=== PATIENT | female | born 1940 | race Two or more races ===

== ENCOUNTER 2021-09-17 11:06 | Outpatient (REF) | payer MEDICARE, SELFPAY ==
--- NOTE | ~2021-09-17 | MR_ITS ---
EXAMINATION: MRI BRAIN WITHOUT CONTRAST CLINICAL INFORMATION: 80-year-old with diminished vision. History of Alzheimer's. COMPARISON: None TECHNIQUE: Multiplanar multisequence MR imaging of the brain was done without contrast. Technical Note: Study was limited due to excessive gross patient motion artifact. FINDINGS: BRAIN VOLUME: Moderate diffuse generalized brain parenchymal volume loss is noted supratentorially. STRUCTURAL: No malformations. BRAIN AND MENINGES: DWI sequence demonstrates no restricted diffusion to suggest acute or subacute cerebral ischemia. Scattered patchy zones of FLAIR/T2 signal hyperintensity are seen within the subcortical and deeper periventricular white matter of both cerebral hemispheres with small patchy zones of T2 hyperintensity extending into the left internal capsule and putamen, likely reflecting chronic ischemic microangiopathy. Bilateral periventricular leukoaraiosis is also noted associated with this. Some patchy T2 hyperintensity is seen in the camryn, right more than left, likely reflecting chronic ischemic microangiopathy. Gradient refocused imaging demonstrates no evidence for hemorrhage, hemosiderin staining or abnormal mineral deposition. No extra-axial fluid collections, significant space-occupying process or mass effect is identified. VENTRICLES AND SUBARACHNOID SPACES: There is third and lateral ventriculomegaly, likely reflecting volume loss. No definite hydrocephalus. ORBITAL STRUCTURES: Limited assessment. Bilateral lens extractions noted. Partially empty sella noted. VASCULAR: Signal voids are noted in the visualized major intracranial vessels. OSSEOUS STRUCTURES, SINUSES/MASTOIDS, EXTRACRANIAL SOFT TISSUES: Bony structures appear grossly unremarkable within the limitations of the exam. The visualized extracranial soft tissue structures are unremarkable. There is some mucosal thickening in the ethmoid complex. MR/MR head/brain wo con IMPRESSION: 1. Findings consistent with chronic ischemic microangiopathy in the white matter of both cerebral hemispheres and within the camryn with no evidence for acute or subacute cerebral ischemia. 2. No acute intracranial process. 3. Diffuse generalized brain parenchymal volume loss primarily supratentorially with third and lateral ventriculomegaly likely reflecting volume loss, most prominent at the perisylvian regions and biparietal lobes. 4. Ethmoid sinus mucosal inflammatory changes. 5. Limited study due to motion artifact.
== END 2021-09-17 11:07 | disposition home or self-care (01) ==
LOC: HO.MRI 11:06
PROVIDERS: Visit Provider Psychiatry & Neurology Neurology
DX: H54.10 Blindness, one eye, low vision other eye, unspecified eyes (principal)
CPT/HCPCS: 70551

== ENCOUNTER → 2025-04-10 13:50 | Outpatient (AMB) | payer MEDICARE, SELFPAY ==
--- NOTE | 2025-04-10 13:52 | A.OFFVIS_ITS ---
Intake Visit Reasons: 6m follow up PD HPI Comments Details: 84 years old woman with Lewy body dementia. This consultation happened over video phone. She was significantly disabled and was not able to come out of home. Her daughter stated that she was mostly sleepy and rigid especially her right side. Sometime she was angry and agitated. No seizure-like episodes. Review of Systems Const Reports as per HPI Physical Exam Neuro Other: Mental Status: She was drowsy and not responsive to communication. Cranial Nerves: Unable to properly check cranial nerves. She was sitting in a wheelchair. Extrapyramidal: Decreased facial expression blinking. Generalized bradykinesia. Speech: Did not speak. Assessment & Plan Assessment & Plan (1) Dementia with Lewy bodies: Comment: CAT scan of brain and MRI of brain in 2012 at ; Mild bilateral medial temporal and parietal lobe atrophy and minimal chronic microvascular ischemic changes. MRI brain WO at [facility] in August 2021: mod to severe atrophy, especially of entorhinal cortex Code(s): G31.83 - Neurocognitive disorder with Lewy bodies; F02.80 - Dementia in other diseases classified elsewhere, unspecified severity, without behavioral disturbance, psychotic disturbance, mood disturbance, and anxiety Category: Medical Qualifiers: Dementia severity: severe Dementia behavioral or psychological symptom: without behavioral, psychotic, or mood disturbance or anxiety Qualified Code(s): G31.83 - Neurocognitive disorder with Lewy bodies; F02.C0 - Dementia in other diseases classified elsewhere, severe, without behavioral disturbance, psychotic disturbance, mood disturbance, and anxiety (2) Parkinsonism: Code(s): G20.C - Parkinsonism, unspecified Category: Medical Qualifiers: 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
--- OUTSIDE RECORDS SUMMARY | 2025-04-10 18:24 | XMS_ITS ---
Author Name [facility] Organization Unknown Care Team Organization Name Specialty Phone Email Start Date End Da te [facility] 12/12/2024 [facility] Alisson Rivas Primary Care 03/02/2022 4
--- OUTSIDE RECORDS SUMMARY | 2025-04-10 18:24 | XMS_ITS | Clinical Summary ---
Author Organization [facility] [address] [facility] Address [address] [place] [address] Phone Care Team Providers Care Warehouse Attendant Name Role Phone Alisson Rivas MD Primary Care Provider [phone] Allergies No known active allergies Medications GARLIC ORAL Take 1 each by mouth 1 (one) time each day. Active CHOLECALCIFEROL, VITAMIN D3, ORAL Take 1 each by mouth 1 (one) time each day. Active ferrous sulfate 324 mg (65 mg elemental iron) EC tablet Take 1 tablet (324 mg total) by mouth 1 (one) time each day. Active ACETYLCARNITINE HCL ORAL Take 400 mg by mouth 1 (one) time each day. Active hydroCHLOROthiazide (HYDRODIURIL) 25 mg tablet TAKE 1 TABLET BY MOUTH 1 TIME EACH DAY. 30 tablet 5 5 Active carbidopa-levodopa (PARCOPA) 25-100 mg per disintegrating tablet Dissolve 1 tablet on top of the tongue 2 (two) times a day. Active warfarin (COUMADIN) 5 mg tablet Take 1 tablet (5 mg total) by mouth 1 (one) time each day. 30 tablet 5 5 Active sertraline (ZOLOFT) 25 mg tablet Take 1 tablet (25 mg total) by mouth 1 (one) time each day. 30 tablet 5 5 Active losartan (COZAAR) 50 mg tablet Take 1 tablet (50 mg total) by mouth 1 (one) time each day. 30 tablet 5 5 Active propranoloL (INDERAL) 60 mg tablet Take 1 tablet (60 mg total) by mouth 2 (two) times a day. 60 tablet 5 Active Active Problems Problem Noted Date Diagnosed Date Parkinson disease 12/19/2024 Atrial fibrillation 04/02/2015 Overview (05/16/2024): Vitamin D deficiency 08/15/2013 Lewy body dementia 05/09/2013 Hypertension 06/22/2006 Overview (05/16/2024): Hyperlipidemia 06/22/2006 Overview (05/16/2024): Resolved Problems Problem Noted Date Diagnosed Date Resolved Date Atrial fibrillation 03/07/2024 03/21/20 24 Encounters Date Type Department Care Team Description 04/01/2025 Telephone Coumadin [address] [phone] Alisson Rivas MD 03/18/2025 Telephone Coumadin [address] [phone] Alisson Rivas MD 03/04/2025 Anticoagulation - Warfarin Visit Coumadin [address] [phone] Alisson Rivas MD Longstanding persistent atrial fibrillation ([facility]/HCC V24, CMS/HCC V28) (Primary Dx) 02/25/2025 Anticoagulation - Warfarin Visit Coumadin [address] [phone] Alisson Rivas MD Longstanding persistent atrial fibrillation (CMS/HCC V24, CMS/HCC V28) (Primary Dx) 02/25/2025 Telephone Adult Medicine [address] [phone] Alisson Rivas MD 02/18/2025 Anticoagulation - Warfarin Visit Coumadin [address] [phone] Alisson Rivas MD Longstanding persistent atrial fibrillation (CMS/HCC V24, [facility] V28) (Primary Dx) 02/18/2025 Telephone Adult Medicine [address] [phone] Alisson Rivas MD 02/11/2025 Anticoagulation - Warfarin Visit Coumadin [address] [phone] Alisson Rivas MD Longstanding persistent atrial fibrillation ([facility] [place]24, [facility] V28) (Primary Dx) 01/28/2025 Anticoagulation - Warfarin Visit Coumadin [address] [phone] Alisson Rivas MD Longstanding persistent atrial fibrillation ([facility] [place]24, [facility] V28) (Primary Dx) 01/14/2025 Anticoagulation - Warfarin Visit Coumadin [address] [phone] Gabbie Castano LPN from Last 3 Months Immunizations Immunization Administration Dates Next Due Pfizer SARS-CoV-2 COVID-19, mRNA, LNP-S, preservative free 05/29/2021 Surgical History Surgery Date Site/Laterality Comments CATARACT EXTRACTION 2013 TONSILLECTOMY Medical History Medical History Date Comments Essential hypertension, benign 06/22/2006 Pure hypercholesterolemia 06/22/2006 Lewy body dementia ([facility] [place]24, [facility] V28) Parkinson disease ([facility] V24, [facility] V28) Family History Medical History Relation Name Comments ALS Brother Other: Other Father age 55 Other: Other Mother age 89 Alzheimer's disease Sister Breast cancer Neg Hx Relation Name Status Comments Brother Father Mother Sister Social History Tobacco Use Types Packs/Day Years Used Date Smoking Tobacco: Never Smokeless Tobacco: Never Tobacco Cessation:Counseling Given: Not Answered Alcohol Use Standard Drinks/Week Comments Not Currently 0 (1 standard drink = 0.6 oz pur e alcohol) Comments Unknown Sex and Gender Information Value Date Recorded Sex Assigned at Not on file Legal Sex Female 7:22 AM EST Gender Identity Not on file Sexual Orientation Not on file Last Filed Vital Signs Vital Sign Reading Time Taken Comments Blood Pressure 125/63 12/19/2024 2:09 PM EDT Pulse 59 12/19/2024 2:09 PM EDT Temperature 35.7 C (96.3 F) 12/19/2024 2:09 PM EDT Respiratory Rate 14 12/19/2024 2:09 PM EDT Oxygen Saturation 97% 12/19/2024 2:09 PM EDT Inhaled Oxygen Concentration - - Weight 63.5 kg (140 lb) 12/19/2024 2:09 PM EDT Height 157.5 cm (5' 2 ) 12/19/2024 2:09 PM EDT Body Mass Index 25.61 12/19/2024 2:09 PM EDT Plan of Treatment Upcoming Encounters Date Type Department Care Team (Late st Contact Info) Description 06/24/2025 2:15 PM EST Office Visit Adult Medicine [facility] [address], [place] [phone] Alisson Rivas MD [address], [place] Health Maintenance Due Date Last Done Comments DTaP,Tdap,and Td Vaccines (1 - Tdap) 1961 Pneumococcal Vaccine: 50+ Years (1 of 1 - PCV) 1992 Zoster Vaccines (1 of 2) 1992 RSV Immunization Adult Patients (1 - 1-dose 75+ series) 2017 Social Influencers of Health Screening 04/03/2022 Osteoporosis Screening (Bone Density Screening) 01/31/2024 01/30/2014 Depression Screening 04/25/2024 09/02/2023 Falls Risk Assessment 09/01/2024 09/02/2023 , 09/02/2023 Medicare Annual Wellness Visit 09/01/2024 09/02/2023 COVID-19 Vaccine (3 - 2024-2 6 season) 2024 05/29/2021, 08/01/2020 Influenza Vaccine (#1) 2024 Hypertension/CHF/CAD Annual BMP Blood Test 09/11/2025 09/11/2024, 09/14/2023, 09/14/2023 Cholesterol Screening (Lipid Panel) 09/13/2028 09/14/2023, 09/14/2023 HIB Vaccines Aged Out No longer eligi ble based on patient's age to complete this topic HPV Vaccines Aged Out No longer eligi ble based on patient's age to complete this topic Hepatitis A Vaccines Aged Out No long er eligible based on patient's age to complete this topic Hepatitis B Vaccines Aged Out No long er eligible based on patient's age to complete this topic IPV Vaccines Aged Out No longer eligi ble based on patient's age to complete this topic MMR Vaccines Aged Out No longer eligi ble based on patient's age to complete this topic Meningococcal ACWY Vaccine Aged Out N o longer eligible based on patient's age to complete this topic Meningococcal B Vaccine Aged Out No l onger eligible based on patient's age to complete this topic RSV Immunization Patients Under 20 months Aged Out No longer eligible b ased on patient's age to complete this topic Varicella Vaccines Aged Out No longer eligible based on patient's age to complete this topic Procedures Procedure Name Priority Date/Time Associated Diagnosis Comments PROTHROMBIN TIME WITH INR 04/01/2025 PROTHROMBIN TIME WITH INR Routine 04/01/2025 PROTHROMBIN TIME WITH INR 03/18/2025 PROTHROMBIN TIME WITH INR Routine 03/18/2025 PROTHROMBIN TIME WITH INR 03/04/2025 PROTHROMBIN TIME WITH INR Routine 03/04/2025 PROTHROMBIN TIME WITH INR 02/25/2025 PROTHROMBIN TIME WITH INR Routine 02/25/2025 PROTHROMBIN TIME WITH INR 02/18/2025 PROTHROMBIN TIME WITH INR Routine 02/18/2025 PROTHROMBIN TIME WITH INR 02/11/2025 PROTHROMBIN TIME WITH INR Routine 02/11/2025 PROTHROMBIN TIME WITH INR Routine 01/28/2025 PROTHROMBIN TIME WITH INR 01/14/2025 PROTHROMBIN TIME WITH INR Routine 01/14/2025 BASIC METABOLIC PANEL Routine 09/11/2024 2:05 PM EDT Primary hypertension LIPID PANEL Routine 09/14/2023 DEPRESSION SCREENING Routine 09/02/2023 FALLS RISK ASSESSMENT Routine 09/02/2023 from Last 3 Months or Most Recently Relevant to Health Maintenance Results * Prothrombin time with INR (04/01/2025) Only the most recent of15 resultswithin the time period is included. us Provider [facility] LAB BLOOD ORDERABLES Fin al Result * (ABNORMAL) Basic metabolic panel (09/11/2024 2:05 PM EDT) Sodium 137 133 - 145 mmol/L LAB CHEMISTRY METHOD 09/11/2024 5:05 PM [facility] Potassium 3.7 3.5 - 5.5 mmol/L LAB CHEMISTRY METHOD 09/11/2024 5:05 PM [facility] Chloride 101 96 - 110 mmol/L LAB CHEMISTRY METHOD 09/11/2024 5:05 PM [facility] CO2 29 21 - 32 mmol/L LAB CHEMISTRY METHOD 09/11/2024 5:05 PM [facility] Anion Gap 7 3 - 11 LAB CHEMISTRY METHOD 09/11/2024 5:05 PM [facility] Glucose 101(H) 70 - 100 mg/dL LAB CHEMISTRY METHOD 09/11/2024 5:05 PM [facility] BUN 13 5 - 25 mg/dL LAB CHEMISTRY METHOD 09/11/2024 5:05 PM [facility] Creatinine 0.59 0.50 - 1.10 mg/dL LAB CHEMISTRY METHOD 09/11/2024 5:05 PM [facility] eGFR 91 >=60 mL/min/1. 73m2 LAB CHEMISTRY METHOD 09/11/2024 5:05 PM EDT [facility] Comment:Calculation based on the Chronic Kidney Disease Epidemiology Collaboration (CKD-EPI) equation refit without adjustment for race. BUN/Creatinine Ratio 22.0 LAB CHEMISTRY METHOD 09/11/2024 5:05 PM EDT [facility] Calcium 9.1 8.5 - 10.5 mg/dL LAB CHEMISTRY METHOD 09/11/2024 5:05 PM EDT [facility] Blood Venous blood specimen / Unknown Venipuncture / Unknown 09/11/2024 2:05 PM EDT 09/11/2024 2:06 PM EDT Alisson Rivas MD LAB BLOOD ORDERABLES Final Resul t [facility] [address] [place] [address], * (ABNORMAL) Lipid panel (09/14/2023) LDL/HDL Ratio 7(A) <=4 Triglycerides 185(A) 0 - 150 mg/dL Cholesterol 235(A) 0 - 200 mg/dL HDL 36(A) >=40 mg/dL LDL Cholesterol 162(A) 0 - 100 mg/dL Blood Venous blood specimen / Unknown Historical Provider LAB BLOOD ORDERABLES Deepti l Result * Falls Risk Assessment (09/02/2023) Pathologist [facility] Falls Risk Assessment abstracted Historical Provider HEALTH MAINTENANCE Final Result * Depression Screening (09/02/2023) Pathologist [facility] Depression Screening abstracted Historical Provider HEALTH MAINTENANCE Final Result from Last 3 Months or Most Recently Relevant to Health Maintenance Insurance MEDICARE [facility] Advance Directives Documents on File Type Date Recorded Patient Complaint Clerk Expl anation Power of Family Practice Md 01/07/2025 12:03 PM Care Teams Warehouse Attendant Relationship Specialty Start Date End Date Alisson Rivas MD [address] [place] [address] PCP - General Internal Medicine 10/25/19
== END ==
LOC: HO.HSM 13:50
PROVIDERS: PCP Internal Medicine; Referring Provider Internal Medicine; Visit Provider Psychiatry & Neurology Neurology
DX: G31.83 Neurocognitive disorder with Lewy bodies (principal); F02.C0 Dementia in other diseases classified elsewhere, severe, without behavioral disturbance, psychotic disturbance, mood disturbance, and anxiety; G21.8 Other secondary parkinsonism
CPT/HCPCS: 99213